=== PATIENT | female | born 1975 | race African-American/Black ===

== ENCOUNTER 2018-08-12 03:05 | Emergency (ER) | payer MEDICAID ==
[~2018-08-12] VITALS: Ht 170.2 cm; Wt 81.6 kg
[2018-08-12] MEDS ORDERED: ONDANSETRON HCL 4 MG/2 ML VIAL ONE (04:10)
[2018-08-12] MEDS ORDERED: MORPHINE SULFATE 4 MG/ML SYR/VIAL ONE (04:11)
[2018-08-12 04:15] LABS: Basophils # (auto) 0.1 uL; Basophils % (auto) 0.7 % (0.0-2.0); Eosinophils # (auto) 0 uL; Eosinophils % (auto) 0.4 % (0.0-7.0); Hematocrit 44.4 % (36.0-46.0); Hemoglobin 15.2 g/dL (12.2-16.2); Lymphocytes # (auto) 1.4 uL; Lymphocytes % (auto) 17.5 % (10.0-50.0); Mean Corpuscular Hemoglobin 30.8 pg (28.0-32.0); Mean Corpuscular Hgb Conc. 34.3 g/dL (32.0-36.0); Mean Corpuscular Volume 89.6 fL (80.0-100.0); Monocytes # (auto) 0.4 uL; Monocytes % (auto) 4.4 % (0.0-12.0); Neutrophils # (auto) 6.3 uL; Nucleated Red Blood Cells % 0.1 %; Platelet Count (auto) 263 10^3/uL (140-450); Red Blood Cells 4.95 10^6/uL (4.0-5.20); Red Cell Distribution Width 13.4 % (11.8-14.3); White Blood Cell 8.2 10^3/uL (4.4-10.8)
[2018-08-12] MEDS ORDERED: MORPHINE SULFATE 4 MG/ML SYR/VIAL IV ONE (04:15)
[2018-08-12] MEDS ORDERED: ONDANSETRON HCL 4 MG/2 ML VIAL IV ONE ×2 (04:15→07:15)
[2018-08-12 04:33] LABS: Albumin 3.9 g/dL (3.4-5.0); Calcium 9.2 mg/dL (8.5-10.1); Potassium 3.6 mmol/L (3.5-5.1)
[2018-08-12 04:35] LABS: BUN/Creatinine Ratio 8.8; Bilirubin, Total 0.4 mg/dL (0.2-1.0); Total Protein 7.5 g/dL (6.4-8.2)
[2018-08-12] MEDS ORDERED: SODIUM CHLORIDE 0.9% 1,000 ML IV ONE (05:30)
[2018-08-12 06:42] VITALS: BP 115/83
[2018-08-12] MEDS ORDERED: KETOROLAC TROMETH 30 MG/ML 1ML VIAL IV ONE (07:00)
[2018-08-12] MEDS ORDERED: LORazepam 0.5 MG TAB PO ONE (08:00)
== END 2018-08-12 08:45 | disposition home or self-care (01) ==
LOC: EDBD 03:05 → ER 03:07
DX: F41.9 Anxiety disorder, unspecified (principal)
CPT/HCPCS: 36415; 80053; 82150; 83690; 84702; 85025; 96361; 96374; 96375; 96376; 99283; J1885; J2270; J2405; J7030